=== PATIENT | female | born 1960 | race Caucasian/White ===

== ENCOUNTER 2016-12-12 02:15 | Emergency (ER) | payer MEDICAID ==
[~2016-12-12] VITALS: Ht 152.4 cm; Wt 100.0 kg
[2016-12-12] MEDS ORDERED: HYDROcodone/APAP 5/325 TABLET ONE (02:48)
[2016-12-12] MEDS ORDERED: HYDROcodone/APAP 5/325 TABLET PO ONE (03:00)
[2016-12-12 03:52] VITALS: BP 148/75
== END 2016-12-12 03:54 | disposition home or self-care (01) ==
LOC: ED 03:34
DX: S80.02XA Contusion of left knee, initial encounter (principal); G89.11 Acute pain due to trauma; G89.29 Other chronic pain; W01.0XXA Fall on same level from slipping, tripping and stumbling without subsequent striking against object, initial encounter; Y93.89 Activity, other specified; Y92.89 Other specified places as the place of occurrence of the external cause; Y99.8 Other external cause status
CPT/HCPCS: 99284

== ENCOUNTER 2017-11-18 09:37 | Emergency (ER) | payer MEDICAID ==
[~2017-11-18] VITALS: Ht 152.4 cm; Wt 108.2 kg
[2017-11-18] MEDS ORDERED: IBUPROFEN 200 MG TABLET ONE (10:25)
[2017-11-18] MEDS ORDERED: IBUPROFEN 200 MG TABLET PO ONE (10:30)
[2017-11-18 11:18] VITALS: BP 152/78
== END 2017-11-18 11:21 | disposition home or self-care (01) ==
LOC: ED 10:27
DX: K04.7 Periapical abscess without sinus (principal); G89.29 Other chronic pain; Z88.0 Allergy status to penicillin; Z88.1 Allergy status to other antibiotic agents; Z88.5 Allergy status to narcotic agent
CPT/HCPCS: 70100; 99284

== ENCOUNTER 2018-12-07 14:30 | Inpatient (IN) | payer MEDICAID ==
[~2018-12-07] VITALS: Ht 152.4 cm; Wt 106.2 kg
[2018-12-07 15:23] LABS: BASOPHILS # (AUTO) 0.12 x10^3/uL (0-0.1); BASOPHILS % (AUTO) 1 % (0-1); EOSINOPHILS # (AUTO) 0.34 x10^3/uL (0-0.4); EOSINOPHILS % (AUTO) 4 % (1-7); LYMPHOCYTES # (AUTO) 2.57 x10^3/uL (1-3.4); LYMPHOCYTES % (AUTO) 27 % (22-44); MD NO; MEAN CORPUSCULAR HEMOGLOBIN 30.5 pg (27.0-34.8); MEAN CORPUSCULAR HGB CONC 32.9 g/dL (32.4-35.8); MEAN CORPUSCULAR VOLUME 92.6 fL (80-100); MEAN PLATELET VOLUME 8.8 fL (7.4-10.4); MONOCYTES # (AUTO) 0.59 x10^3/uL (0.2-0.8); MONOCYTES % (AUTO) 6 % (2-9); NEUTROPHILS # (AUTO) 5.76 x10^3/uL (1.8-6.8); NEUTROPHILS % (AUTO) 61 % (42-75); PLATELET COUNT 316 x10^3/uL (130-400); RED BLOOD COUNT 5.02 x10^6/uL (3.82-5.3); RED CELL DISTRIBUTION WIDTH 13.9 % (9.6-15.2)
[2018-12-07 15:28] LABS: ALANINE AMINOTRANSFERASE 31 U/L (12-78); ALBUMIN 3.1 g/dL (3.4-5.0); ANION GAP 8 mmol/L (5-15); CALCIUM 8.4 mg/dL (8.5-10.1); CHLORIDE 109 mmol/L (98-107); CREATININE 1.21 mg/dL (0.55-1.02)
--- NOTE | 2018-12-07 15:28 | NUR ---
PT RESTING ON STERLING HASTINGS NOTED AT THIS TIME, PT DENIES NEEDS
[2018-12-07 15:32] LABS: ALKALINE PHOSPHATASE 130 U/L (45-117); BILIRUBIN,TOTAL 0.5 mg/dL (0.2-1.0); TOTAL PROTEIN 8.2 g/dL (6.4-8.2); TROPONIN I 0.031 ng/mL (0.000-0.045)
[2018-12-07] MEDS ORDERED: FUROSEMIDE 40 MG/4 ML ONE (15:57)
[2018-12-07] MEDS ORDERED: FUROSEMIDE 20 MG/2 ML IV ONE (16:00)
[2018-12-07] MEDS ORDERED: ASPIRIN 325 MG TABLET ONE (16:17)
[2018-12-07] MEDS ORDERED: NITROGLYCERIN OINT 2%, 1GM TP ONE ×2 (16:18→16:30)
--- NOTE | 2018-12-07 16:22 | NUR ---
PT MEDICATED PER MAR, ADMITTING MD AT BEDSIDE. AWAITING BED PLACEMENT
[2018-12-07] MEDS ORDERED: ENOXAPARIN 40 MG/0.4 ML SQ SCH (16:30)
[2018-12-07] MEDS ORDERED: ASPIRIN 81 MG TABLET CHEW PO ONE (16:30)
[2018-12-07] MEDS ORDERED: LABETALOL 5MG/ML, 20ML IVPush PRN (16:30)
[2018-12-07] MEDS ORDERED: PROMETHAZINE 25 MG/ML, 1ML IM PRN (16:30)
[2018-12-07] MEDS: NICOTINE 7 MG/24 HR PATCH.TD24 TD SCH (16:30)
[2018-12-07] MEDS ORDERED: GUAIFENESIN 200 MG TABLET PO SCH (16:30)
[2018-12-07] MEDS ORDERED: NITROGLYCERIN 0.4 MG BOTTLE (25 TABS) SL PRN (16:30)
[2018-12-07] MEDS ORDERED: ONDANSETRON 2MG/ML, 2ML IVPush PRN (16:30)
[2018-12-07] MEDS ORDERED: HEPARIN 5,000 UNITS/ML, 1ML SQ SCH (17:00)
[2018-12-07] MEDS ORDERED: FUROSEMIDE 40 MG/4 ML IV SCH (17:00)
[2018-12-07 17:11] LABS: TROPONIN I 0.026 ng/mL (0.000-0.045)
[2018-12-07 17:28] VITALS: BP 139/93
[2018-12-07 18:03] LABS: RAPID INFLUENZA A Negative (Negative); RAPID INFLUENZA B Negative (Negative)
[2018-12-07] MEDS: GUAIFENESIN 200 MG TABLET PO SCH ×2 (18:03→20:12)
[2018-12-07] MEDS: CARVEDILOL 3.125 MG TABLET PO SCH (18:03)
[2018-12-07] MEDS ORDERED: no home meds (18:23)
[2018-12-07 18:48] VITALS: BP 116/84
[2018-12-07] MEDS: HEPARIN 5,000 UNITS/ML, 1ML SQ SCH (20:00)
[2018-12-07] MEDS: ATORVASTATIN 80 MG TABLET PO SCH (20:12)
[2018-12-07 22:41] LABS: TROPONIN I 0.024 ng/mL (0.000-0.045)
[2018-12-08] MEDS: ACETAMINOPHEN 325 MG TABLET PO PRN ×2 (00:04→05:34)
[2018-12-08 00:30] VITALS: BP 149/95
[2018-12-08] MEDS ORDERED: ALBUTEROL SULFATE 2.5 MG/3 ML NPPB PRN (03:30)
[2018-12-08] MEDS: HEPARIN 5,000 UNITS/ML, 1ML SQ SCH ×3 (04:00→20:00)
[2018-12-08 05:18] LABS: BASOPHILS # (AUTO) 0.05 x10^3/uL (0-0.1); BASOPHILS % (AUTO) 1 % (0-1); EOSINOPHILS # (AUTO) 0.44 x10^3/uL (0-0.4); EOSINOPHILS % (AUTO) 5 % (1-7); LYMPHOCYTES % (AUTO) 21 % (22-44); MD NO; MEAN CORPUSCULAR HEMOGLOBIN 30.6 pg (27.0-34.8); MEAN CORPUSCULAR HGB CONC 32.5 g/dL (32.4-35.8); MEAN CORPUSCULAR VOLUME 94.3 fL (80-100); MEAN PLATELET VOLUME 8.7 fL (7.4-10.4); MONOCYTES # (AUTO) 0.56 x10^3/uL (0.2-0.8); MONOCYTES % (AUTO) 6 % (2-9); NEUTROPHILS # (AUTO) 5.95 x10^3/uL (1.8-6.8); NEUTROPHILS % (AUTO) 67 % (42-75); PLATELET COUNT 285 x10^3/uL (130-400); RED BLOOD COUNT 4.98 x10^6/uL (3.82-5.3); RED CELL DISTRIBUTION WIDTH 14.4 % (9.6-15.2)
[2018-12-08 05:32] LABS: ALANINE AMINOTRANSFERASE 26 U/L (12-78); ALBUMIN 2.9 g/dL (3.4-5.0); ANION GAP 7 mmol/L (5-15); CALCIUM 8.2 mg/dL (8.5-10.1); CHLORIDE 105 mmol/L (98-107); CHOLESTEROL, TOTAL 140 mg/dL (140-239); CREATININE 1.04 mg/dL (0.55-1.02); TRIGLYCERIDES 69 mg/dL (50-200); VLDL CHOLESTEROL 14 mg/dL (0-25)
[2018-12-08] MEDS: CARVEDILOL 3.125 MG TABLET PO SCH ×2 (05:34→16:52)
[2018-12-08] MEDS: GUAIFENESIN 200 MG TABLET PO SCH ×4 (05:34→20:29)
[2018-12-08 05:36] LABS: ALKALINE PHOSPHATASE 114 U/L (45-117); BILIRUBIN,TOTAL 0.7 mg/dL (0.2-1.0); CHOL/HDL RATIO 2.3; HDL CHOL % 44 % (28-40); HDL CHOLESTEROL (DIRECT) 62 mg/dL (40-60); LDL CHOLESTEROL,CALCULATED 64 mg/dL (54-169); TOTAL PROTEIN 7.8 g/dL (6.4-8.2); TROPONIN I < 0.015 ng/mL (0.000-0.045)
[2018-12-08 07:51] VITALS: BP 135/91
[2018-12-08] MEDS: ASPIRIN 81 MG TABLET CHEW PO SCH (08:52)
[2018-12-08] MEDS: FUROSEMIDE 40 MG/4 ML IV SCH ×4 (08:52→20:29)
[2018-12-08 15:20] VITALS: BP 114/78
[2018-12-08] MEDS: NICOTINE 7 MG/24 HR PATCH.TD24 TD SCH (16:43)
[2018-12-08 19:34] VITALS: BP 145/93
[2018-12-08] MEDS: ATORVASTATIN 80 MG TABLET PO SCH (20:27)
[2018-12-09 00:55] VITALS: BP 135/86
[2018-12-09] MEDS: HEPARIN 5,000 UNITS/ML, 1ML SQ SCH ×3 (04:00→20:00)
[2018-12-09 05:39] LABS: ANION GAP 7 mmol/L (5-15); CALCIUM 8.5 mg/dL (8.5-10.1); CHLORIDE 103 mmol/L (98-107)
[2018-12-09 05:42] LABS: ALANINE AMINOTRANSFERASE 26 U/L (12-78); ALKALINE PHOSPHATASE 126 U/L (45-117); BILIRUBIN,TOTAL 0.7 mg/dL (0.2-1.0); CREATININE 1.29 mg/dL (0.55-1.02); TOTAL PROTEIN 8.4 g/dL (6.4-8.2)
[2018-12-09 06:15] VITALS: BP 138/93
[2018-12-09] MEDS: CARVEDILOL 3.125 MG TABLET PO SCH (06:16)
[2018-12-09] MEDS: GUAIFENESIN 200 MG TABLET PO SCH ×4 (06:16→20:59)
[2018-12-09 07:50] VITALS: BP 125/71
[2018-12-09] MEDS: FUROSEMIDE 40 MG/4 ML IV SCH ×2 (08:31→21:00)
[2018-12-09] MEDS: ASPIRIN 81 MG TABLET CHEW PO SCH (08:31)
[2018-12-09 13:36] VITALS: BP 134/92
[2018-12-09] MEDS: NICOTINE 7 MG/24 HR PATCH.TD24 TD SCH (15:17)
[2018-12-09] MEDS: CARVEDILOL 6.25 MG TABLET PO SCH (17:40)
[2018-12-09 19:26] VITALS: BP 143/90
[2018-12-09] MEDS: ATORVASTATIN 80 MG TABLET PO SCH (21:00)
[2018-12-10 00:40] VITALS: BP 132/87
[2018-12-10] MEDS: HEPARIN 5,000 UNITS/ML, 1ML SQ SCH ×3 (04:00→19:49)
[2018-12-10 04:14] VITALS: BP 143/95
[2018-12-10] MEDS: CARVEDILOL 6.25 MG TABLET PO SCH (04:15)
[2018-12-10] MEDS: GUAIFENESIN 200 MG TABLET PO SCH ×4 (04:16→19:49)
[2018-12-10 04:44] LABS: ALANINE AMINOTRANSFERASE 23 U/L (12-78); ANION GAP 6 mmol/L (5-15); CALCIUM 8.6 mg/dL (8.5-10.1); CHLORIDE 103 mmol/L (98-107); CREATININE 1.23 mg/dL (0.55-1.02)
[2018-12-10 04:46] LABS: ALKALINE PHOSPHATASE 122 U/L (45-117); BILIRUBIN,TOTAL 0.6 mg/dL (0.2-1.0); TOTAL PROTEIN 8.6 g/dL (6.4-8.2)
[2018-12-10 07:07] VITALS: BP 124/84
[2018-12-10] MEDS: FUROSEMIDE 40 MG/4 ML IV SCH ×2 (08:17→19:49)
[2018-12-10] MEDS: ASPIRIN 81 MG TABLET CHEW PO SCH (08:17)
[2018-12-10 14:34] VITALS: BP 130/82
[2018-12-10] MEDS: NICOTINE 7 MG/24 HR PATCH.TD24 TD SCH (16:09)
[2018-12-10] MEDS ORDERED: POTASSIUM CHLORIDE 20 MEQ TAB.ER.PRT PO ONE (16:30)
[2018-12-10] MEDS: CARVEDILOL 12.5 MG TABLET PO SCH (17:18)
[2018-12-10] MEDS: ATORVASTATIN 80 MG TABLET PO SCH (19:49)
[2018-12-10 19:58] VITALS: BP 120/77
[2018-12-11 01:19] VITALS: BP 126/83
[2018-12-11] MEDS: HEPARIN 5,000 UNITS/ML, 1ML SQ SCH ×4 (04:00→22:55)
[2018-12-11 04:26] VITALS: BP 162/105
[2018-12-11] MEDS: CARVEDILOL 12.5 MG TABLET PO SCH ×2 (04:27→17:45)
[2018-12-11] MEDS: GUAIFENESIN 200 MG TABLET PO SCH ×4 (04:27→21:00)
[2018-12-11 04:52] LABS: ALANINE AMINOTRANSFERASE 22 U/L (12-78); ALBUMIN 3.1 g/dL (3.4-5.0); ANION GAP 7 mmol/L (5-15); CALCIUM 8.8 mg/dL (8.5-10.1); CHLORIDE 104 mmol/L (98-107); CREATININE 1.33 mg/dL (0.55-1.02)
[2018-12-11 04:54] LABS: ALKALINE PHOSPHATASE 120 U/L (45-117); BILIRUBIN,TOTAL 0.5 mg/dL (0.2-1.0); TOTAL PROTEIN 8.6 g/dL (6.4-8.2)
[2018-12-11 04:58] LABS: HEMOGLOBIN A1C 5.5 % (4.2-6.3)
[2018-12-11 08:04] VITALS: BP 105/70
[2018-12-11] MEDS: FUROSEMIDE 40 MG/4 ML IV SCH (09:53)
[2018-12-11] MEDS: ASPIRIN 81 MG TABLET CHEW PO SCH (09:59)
[2018-12-11 14:08] VITALS: BP 132/83
[2018-12-11] MEDS: NICOTINE 7 MG/24 HR PATCH.TD24 TD SCH (16:06)
[2018-12-11 17:44] VITALS: BP 135/93
[2018-12-11 20:00] VITALS: BP 125/85
[2018-12-11] MEDS: ATORVASTATIN 80 MG TABLET PO SCH (21:28)
[2018-12-12 02:55] VITALS: BP 135/85
[2018-12-12] MEDS: CARVEDILOL 12.5 MG TABLET PO SCH ×2 (05:26→17:52)
[2018-12-12] MEDS: GUAIFENESIN 200 MG TABLET PO SCH ×4 (05:26→20:43)
[2018-12-12 05:45] LABS: INTERNATIONAL NORMALIZED RATIO 1.06 (0.93-1.1); PROTHROMBIN TIME 11.1 Seconds (9.6-11.5)
[2018-12-12 05:48] LABS: ANION GAP 7 mmol/L (5-15); CALCIUM 8.8 mg/dL (8.5-10.1); CHLORIDE 104 mmol/L (98-107)
[2018-12-12 05:51] LABS: BASOPHILS # (AUTO) 0.06 x10^3/uL (0-0.1); BASOPHILS % (AUTO) 1 % (0-1); EOSINOPHILS # (AUTO) 0.47 x10^3/uL (0-0.4); EOSINOPHILS % (AUTO) 4 % (1-7); LYMPHOCYTES # (AUTO) 3.37 x10^3/uL (1-3.4); LYMPHOCYTES % (AUTO) 30 % (22-44); MD NO; MEAN CORPUSCULAR HEMOGLOBIN 30.3 pg (27.0-34.8); MEAN CORPUSCULAR HGB CONC 32.1 g/dL (32.4-35.8); MEAN CORPUSCULAR VOLUME 94.2 fL (80-100); MEAN PLATELET VOLUME 8.9 fL (7.4-10.4); MONOCYTES # (AUTO) 1.07 x10^3/uL (0.2-0.8); MONOCYTES % (AUTO) 9 % (2-9); NEUTROPHILS # (AUTO) 6.32 x10^3/uL (1.8-6.8); NEUTROPHILS % (AUTO) 56 % (42-75); PLATELET COUNT 323 x10^3/uL (130-400)
[2018-12-12 07:44] VITALS: BP 104/71
[2018-12-12] MEDS: ASPIRIN 81 MG TABLET CHEW PO SCH (09:54)
[2018-12-12] MEDS ORDERED: VERAPAMIL 2.5 MG/ML, 2ML ONE (10:18)
[2018-12-12] MEDS ORDERED: MIDAZOLAM 1 MG/ML, 5ML ONE (10:18)
[2018-12-12] MEDS ORDERED: FENTANYL PF 100 MCG/2ML ONE (10:18)
[2018-12-12] MEDS ORDERED: NITROGLYCERIN 5 MG/ML, 10ML ONE (10:18)
[2018-12-12] MEDS ORDERED: LIDOCAINE-MPF 1%, 5ML ONE (10:19)
[2018-12-12] MEDS ORDERED: HEPARIN 1,000 UNITS/ML, 10ML ONE (10:19)
[2018-12-12] MEDS: HEPARIN 5,000 UNITS/ML, 1ML SQ SCH ×2 (12:00→20:00)
[2018-12-12 12:18] VITALS: BP 114/79
[2018-12-12] MEDS: NICOTINE 7 MG/24 HR PATCH.TD24 TD SCH (16:30)
[2018-12-12 17:48] VITALS: BP 116/82
[2018-12-12 19:09] VITALS: BP 126/68
[2018-12-12] MEDS: ATORVASTATIN 80 MG TABLET PO SCH (20:43)
[2018-12-13 00:02] VITALS: BP 121/81
[2018-12-13] MEDS: HEPARIN 5,000 UNITS/ML, 1ML SQ SCH (04:00)
[2018-12-13 04:42] LABS: ANION GAP 8 mmol/L (5-15); CALCIUM 8.8 mg/dL (8.5-10.1); CHLORIDE 105 mmol/L (98-107)
[2018-12-13] MEDS: GUAIFENESIN 200 MG TABLET PO SCH (06:00)
[2018-12-13] MEDS: CARVEDILOL 12.5 MG TABLET PO SCH (06:24)
[2018-12-13 07:00] VITALS: BP 105/72
[2018-12-13] MEDS: ASPIRIN 81 MG TABLET CHEW PO SCH (08:13)
[2018-12-13] MEDS ORDERED: ATOR-2 PO (09:58)
[2018-12-13] MEDS ORDERED: CARV12.52 PO (09:58)
== END 2018-12-13 12:04 | disposition home or self-care (01) | DRG 287 ==
LOC: ED 15:49 → EDIP 15:50 → ED 16:51 → 5SO 17:24 → DCLOUNGE 12-13 11:57
PROVIDERS: ADMIT Internal Medicine; ATTEND Internal Medicine
PROC: 4A023N7 Measurement of Cardiac Sampling and Pressure, Left Heart, Percutaneous Approach (ICD-10-PCS; principal; 2018-12-12)
PROC: B211YZZ Fluoroscopy of Multiple Coronary Arteries using Other Contrast (ICD-10-PCS; 2018-12-12)
PROC: B215YZZ Fluoroscopy of Left Heart using Other Contrast (ICD-10-PCS; 2018-12-12)
DX: I11.0 Hypertensive heart disease with heart failure (principal); I47.2 Ventricular tachycardia; N17.9 Acute kidney failure, unspecified; Z68.42 Body mass index [BMI] 45.0-49.9, adult; E66.01 Morbid (severe) obesity due to excess calories; I50.41 Acute combined systolic (congestive) and diastolic (congestive) heart failure; F17.210 Nicotine dependence, cigarettes, uncomplicated; I25.10 Atherosclerotic heart disease of native coronary artery without angina pectoris; I27.20 Pulmonary hypertension, unspecified; F15.10 Other stimulant abuse, uncomplicated; I37.1 Nonrheumatic pulmonary valve insufficiency; Z66 Do not resuscitate; Z82.49 Family history of ischemic heart disease and other diseases of the circulatory system; Z71.6 Tobacco abuse counseling; I25.2 Old myocardial infarction
CPT/HCPCS: 0399T; 36415; 71045; 80048; 80053; 80061; 83036; 83735; 83880; 84100; 84443; 84484; 85025; 85610; 85730; 87400; 93005; 93306; 93458; 99156; 99285; C1769; C1894; G0378; J1644; J1940; J2250; J3010; Q9967

== ENCOUNTER 2019-03-21 06:12 | Inpatient (IN) | payer MEDICAID ==
[~2019-03-21] VITALS: Ht 152.4 cm; Wt 103.4 kg
[~2019-03-21 06:12] MED LIST: ATOR-2 PO; CARV12.52 PO; no home meds
--- NOTE | 2019-03-21 06:41 | NUR ---
Patient presents to ER c/o difficulty breathing for two months which became worse today. She also c/o substernal chest pressure which is worse with deep breathing. Patient is speaking in full, quick sentences. Hx of CHF. Respirations even. Patient refusing to change into gown; refusing to keep nasal cannula in nose.
--- NOTE | 2019-03-21 06:55 | NUR ---
Report given to KWASI Kurtz.
--- NOTE | 2019-03-21 06:59 | NUR ---
RECEIVED REPORT ASSUMED CARE
[2019-03-21] MEDS ORDERED: ALBUTEROL SULFATE 2.5 MG/3 ML NPPB PRN (07:00)
[2019-03-21] MEDS ORDERED: NITROGLYCERIN SINGLE TAB 0.4 MG SL PRN (07:00)
[2019-03-21] MEDS ORDERED: ASPIRIN 81 MG TABLET CHEW PO ONE (07:00)
[2019-03-21] MEDS ORDERED: METOPROLOL 1 MG/ML, 5ML IVPush PRN (07:00)
[2019-03-21] MEDS ORDERED: ALBUTEROL SULFATE 2.5 MG/3 ML ONE (07:01)
[2019-03-21 07:10] LABS: BASOPHILS # (AUTO) 0.05 x10^3/uL (0-0.1); BASOPHILS % (AUTO) 1 % (0-1); EOSINOPHILS # (AUTO) 0.22 x10^3/uL (0-0.4); EOSINOPHILS % (AUTO) 2 % (1-7); LYMPHOCYTES # (AUTO) 1.74 x10^3/uL (1-3.4); LYMPHOCYTES % (AUTO) 17 % (22-44); MD NO; MEAN CORPUSCULAR HEMOGLOBIN 30.2 pg (27.0-34.8); MEAN CORPUSCULAR HGB CONC 32.6 g/dL (32.4-35.8); MEAN CORPUSCULAR VOLUME 92.8 fL (80-100); MEAN PLATELET VOLUME 9.5 fL (7.4-10.4); MONOCYTES # (AUTO) 0.69 x10^3/uL (0.2-0.8); MONOCYTES % (AUTO) 7 % (2-9); NEUTROPHILS # (AUTO) 7.49 x10^3/uL (1.8-6.8); NEUTROPHILS % (AUTO) 74 % (42-75); PLATELET COUNT 288 x10^3/uL (130-400); RED BLOOD COUNT 5.15 x10^6/uL (3.82-5.3)
--- NOTE | 2019-03-21 07:10 | NUR ---
RT AT BEDSIDE
[2019-03-21 07:15] LABS: ALANINE AMINOTRANSFERASE 21 U/L (12-78); ALBUMIN 2.9 g/dL (3.4-5.0); ANION GAP 8 mmol/L (5-15); CALCIUM 8.5 mg/dL (8.5-10.1); CHLORIDE 112 mmol/L (98-107)
[2019-03-21 07:20] LABS: ALKALINE PHOSPHATASE 113 U/L (45-117); BILIRUBIN,TOTAL 0.8 mg/dL (0.2-1.0); TOTAL PROTEIN 7.9 g/dL (6.4-8.2); TROPONIN I 0.032 ng/mL (0.000-0.045)
[2019-03-21] MEDS ORDERED: ASPIRIN 81 MG TABLET CHEW ONE (08:01)
--- NOTE | 2019-03-21 08:06 | NUR ---
WHEN PT AMBULATED TO BATHROOM PT DISPLAYED SOB, INCREASED WOB WITH EXERTION. IV ESTABLISHED ON RETURN TO ROOM AND MEDICATED PER ORDERS.
--- NOTE | 2019-03-21 08:35 | NUR ---
AFTER NITRO GIVEN PT STATES SHE CONTINUES TO HAVE PAIN CENTER OF CHEST. VS RECHECKED AND TO BE ADDITIONALLY MEDICATED NOTED ON MAR
[2019-03-21] MEDS ORDERED: METOPROLOL 1 MG/ML, 5ML ONE (08:38)
[2019-03-21] MEDS ORDERED: ASPI325T17 PO (08:43)
[2019-03-21] MEDS ORDERED: FUROSEMIDE 40 MG TABLET PO STA (08:51)
[2019-03-21] MEDS ORDERED: FUROSEMIDE 40 MG TABLET ONE (09:26)
--- NOTE | 2019-03-21 10:18 | NUR ---
REPORT TO HENRY VILLALPANDO. PT TO BE TRANSPORTED TO FLOOR
--- NOTE | 2019-03-21 10:28 | NUR ---
HOSPITALIST AT BEDSIDE AND THEN PT OFF FLOOR TO TELE WITH TECH
[2019-03-21] MEDS ORDERED: ONDANSETRON ODT 4 MG PO PRN ×2 (10:30→11:30)
[2019-03-21] MEDS ORDERED: DOCUSATE 100 MG CAPSULE PO PRN ×2 (10:30→11:30)
[2019-03-21] MEDS ORDERED: morphine SULFATE 10 MG/ML, 1ML IVPush PRN (10:30)
[2019-03-21] MEDS ORDERED: BISACODYL 10 MG SUPP PR PRN ×2 (10:30→11:30)
[2019-03-21] MEDS ORDERED: POLYETHYLENE GLYCOL 17 GM PACKET PO PRN ×2 (10:30→11:30)
[2019-03-21] MEDS ORDERED: NICOTINE 7 MG/24 HR PATCH.TD24 TD SCH (10:30)
[2019-03-21] MEDS ORDERED: hydrALAzine 20 MG/ML, 1ML IVPush PRN ×2 (10:30→15:30)
[2019-03-21 10:48] VITALS: BP 149/103
[2019-03-21] MEDS ORDERED: FUROSEMIDE 20 MG/2 ML IV SCH (11:00)
[2019-03-21] MEDS ORDERED: LISINOPRIL 5 MG TABLET PO SCH ×2 (11:00→11:30)
[2019-03-21 11:25] VITALS: BP 149/103
[2019-03-21] MEDS: NICOTINE 7 MG/24 HR PATCH.TD24 TD SCH (11:30)
[2019-03-21 11:32] LABS: FREE T4 (FREE THYROXINE) 1.5 ng/dL (0.76-1.46)
[2019-03-21] MEDS ORDERED: ENOXAPARIN 40 MG/0.4 ML SQ SCH (12:00)
[2019-03-21] MEDS ORDERED: ENOXAPARIN 40 MG/0.4 ML ONE (12:15)
[2019-03-21] MEDS: ENOXAPARIN 40 MG/0.4 ML SQ SCH (12:19)
[2019-03-21 14:40] VITALS: BP 152/108
[2019-03-21] MEDS: CARVEDILOL 3.125 MG TABLET PO SCH (16:56)
[2019-03-21] MEDS: FUROSEMIDE 20 MG/2 ML IV SCH (16:57)
[2019-03-21] MEDS ORDERED: CARVEDILOL 3.125 MG TABLET PO SCH (18:00)
[2019-03-21 18:56] VITALS: BP 147/92
[2019-03-21] MEDS ORDERED: ACETAMINOPHEN 325 MG TABLET ONE (21:19)
[2019-03-21] MEDS: ACETAMINOPHEN 325 MG TABLET PO PRN (21:22)
[2019-03-22 00:55] VITALS: BP 147/82
[2019-03-22] MEDS ORDERED: ACETAMINOPHEN 325 MG TABLET ONE (02:26)
[2019-03-22] MEDS: ACETAMINOPHEN 325 MG TABLET PO PRN (02:28)
[2019-03-22 06:15] VITALS: BP_SYST 148; BP_DIAS 100; BP_DIAS 103
[2019-03-22] MEDS: CARVEDILOL 3.125 MG TABLET PO SCH (06:18)
[2019-03-22 06:26] VITALS: BP 153/91
[2019-03-22 07:51] LABS: ANION GAP 7 mmol/L (5-15); CALCIUM 8.2 mg/dL (8.5-10.1); CHLORIDE 109 mmol/L (98-107); CREATININE 1.11 mg/dL (0.55-1.02)
[2019-03-22] MEDS ORDERED: KETOROLAC 30 MG/1 ML IVPush ONE (08:00)
[2019-03-22] MEDS ORDERED: KETOROLAC 30 MG/1 ML IVPush PRN (08:00)
[2019-03-22 08:40] LABS: BASOPHILS # (AUTO) 0.04 x10^3/uL (0-0.1); BASOPHILS % (AUTO) 0 % (0-1); EOSINOPHILS # (AUTO) 0.25 x10^3/uL (0-0.4); EOSINOPHILS % (AUTO) 3 % (1-7); LYMPHOCYTES # (AUTO) 2.19 x10^3/uL (1-3.4); LYMPHOCYTES % (AUTO) 23 % (22-44); MD NO; MEAN CORPUSCULAR HEMOGLOBIN 30.2 pg (27.0-34.8); MEAN CORPUSCULAR HGB CONC 32.5 g/dL (32.4-35.8); MEAN CORPUSCULAR VOLUME 93.1 fL (80-100); MEAN PLATELET VOLUME 9.6 fL (7.4-10.4); MONOCYTES # (AUTO) 0.57 x10^3/uL (0.2-0.8); MONOCYTES % (AUTO) 6 % (2-9); NEUTROPHILS # (AUTO) 6.41 x10^3/uL (1.8-6.8); NEUTROPHILS % (AUTO) 68 % (42-75); PLATELET COUNT 269 x10^3/uL (130-400); RED BLOOD COUNT 4.93 x10^6/uL (3.82-5.3); RED CELL DISTRIBUTION WIDTH 15.1 % (9.6-15.2)
[2019-03-22] MEDS: GUAIFENESIN ER 600 MG TABLET PO SCH ×2 (09:26→20:05)
[2019-03-22] MEDS: LORATADINE 10 MG TABLET PO SCH (09:27)
[2019-03-22] MEDS: FUROSEMIDE 20 MG/2 ML IV SCH ×2 (09:27→17:14)
[2019-03-22] MEDS: LISINOPRIL 10 MG TABLET PO SCH ×2 (09:27→20:05)
[2019-03-22] MEDS: SPIRONOLACTONE 25 MG TABLET PO SCH (09:27)
[2019-03-22] MEDS: NICOTINE 7 MG/24 HR PATCH.TD24 TD SCH (11:30)
[2019-03-22] MEDS: ENOXAPARIN 40 MG/0.4 ML SQ SCH (11:43)
[2019-03-22] MEDS ORDERED: LABETALOL 5MG/ML, 20ML IVPush PRN (12:00)
[2019-03-22] MEDS: FLUTICASONE NASAL SPRAY 16GM NAS SCH (12:42)
[2019-03-22 13:50] VITALS: BP 142/91
[2019-03-22] MEDS: CARVEDILOL 6.25 MG TABLET PO SCH (17:13)
[2019-03-22 18:38] VITALS: BP 138/87
[2019-03-23 00:16] VITALS: BP 132/80
[2019-03-23 06:00] VITALS: BP 139/94
[2019-03-23] MEDS: CARVEDILOL 6.25 MG TABLET PO SCH ×2 (06:11→17:44)
[2019-03-23 07:46] LABS: ANION GAP 9 mmol/L (5-15); CHLORIDE 107 mmol/L (98-107); CREATININE 1.19 mg/dL (0.55-1.02)
[2019-03-23 08:13] VITALS: BP 130/86
[2019-03-23] MEDS: FLUTICASONE NASAL SPRAY 16GM NAS SCH (10:33)
[2019-03-23] MEDS: LORATADINE 10 MG TABLET PO SCH (10:33)
[2019-03-23] MEDS: GUAIFENESIN ER 600 MG TABLET PO SCH ×2 (10:33→20:01)
[2019-03-23] MEDS: SPIRONOLACTONE 25 MG TABLET PO SCH (10:34)
[2019-03-23] MEDS: FUROSEMIDE 40 MG TABLET PO SCH (10:34)
[2019-03-23] MEDS: LISINOPRIL 10 MG TABLET PO SCH ×2 (10:34→20:01)
[2019-03-23] MEDS: NICOTINE 7 MG/24 HR PATCH.TD24 TD SCH (10:34)
[2019-03-23] MEDS: ENOXAPARIN 40 MG/0.4 ML SQ SCH (12:30)
[2019-03-23 13:41] VITALS: BP 126/82
[2019-03-23 18:35] VITALS: BP 157/98
[2019-03-24 01:22] VITALS: BP 125/85
[2019-03-24] MEDS: CARVEDILOL 6.25 MG TABLET PO SCH (06:17)
[2019-03-24] MEDS ORDERED: SPIR25TA PO (07:30)
[2019-03-24] MEDS ORDERED: CARV6.2512 PO ×3 (07:30→11:20)
[2019-03-24] MEDS ORDERED: FURO40TA6 PO (07:30)
[2019-03-24] MEDS ORDERED: LISI-167 PO (07:30)
[2019-03-24] MEDS: LISINOPRIL 10 MG TABLET PO SCH (08:33)
[2019-03-24] MEDS: FLUTICASONE NASAL SPRAY 16GM NAS SCH (08:33)
[2019-03-24] MEDS: LORATADINE 10 MG TABLET PO SCH (08:33)
[2019-03-24] MEDS: GUAIFENESIN ER 600 MG TABLET PO SCH (08:33)
[2019-03-24] MEDS: FUROSEMIDE 40 MG TABLET PO SCH (08:34)
[2019-03-24] MEDS: SPIRONOLACTONE 25 MG TABLET PO SCH (08:34)
[2019-03-24 10:02] VITALS: BP 115/76
[2019-03-24] MEDS: NICOTINE 7 MG/24 HR PATCH.TD24 TD SCH (10:49)
[2019-03-24 11:03] LABS: ANION GAP 5 mmol/L (5-15); CALCIUM 8.5 mg/dL (8.5-10.1); CHLORIDE 107 mmol/L (98-107); CREATININE 1.15 mg/dL (0.55-1.02)
[2019-03-24] MEDS ORDERED: MAGNESIUM SULFATE PMX 2GM/50ML 50 ML IV ONE (11:30)
[2019-03-24] MEDS: ENOXAPARIN 40 MG/0.4 ML SQ SCH (11:45)
[2019-03-24 12:53] LABS: MICROSCOPIC NOT IND
[2019-03-24 15:18] VITALS: BP 132/89
[2019-03-24] MEDS ORDERED: CARVEDILOL 12.5 MG TABLET PO SCH (18:00)
== END 2019-03-24 17:21 | disposition home or self-care (01) | DRG 291 ==
LOC: ED 09:39 → 4WST 10:01 → ED 11:18
PROVIDERS: ADMIT Internal Medicine; ATTEND Hospitalist
DX: I50.43 Acute on chronic combined systolic (congestive) and diastolic (congestive) heart failure (principal); J96.01 Acute respiratory failure with hypoxia; I47.1 Supraventricular tachycardia; I47.2 Ventricular tachycardia; Z68.41 Body mass index [BMI] 40.0-44.9, adult; E66.01 Morbid (severe) obesity due to excess calories; Z88.0 Allergy status to penicillin; Z88.8 Allergy status to other drugs, medicaments and biological substances; F17.210 Nicotine dependence, cigarettes, uncomplicated; I27.20 Pulmonary hypertension, unspecified; J30.9 Allergic rhinitis, unspecified; Z91.14 Patient's other noncompliance with medication regimen
CPT/HCPCS: 36415; 71045; 80048; 80053; 81003; 83036; 83735; 83880; 84100; 84439; 84443; 84484; 85025; 93005; 94640; 96374; 99285; G0378; J1885; J0360; J1940; J3475

== ENCOUNTER 2019-04-11 20:28 | Emergency (ER) | payer MEDICAID ==
[~2019-04-11] VITALS: Ht 152.4 cm; Wt 95.6 kg
[~2019-04-11 20:28] MED LIST changes: +ASPI325T17 PO; +CARV6.2512 PO; +FURO40TA6 PO; +LISI-167 PO; +SPIR25TA PO
[2019-04-11] MEDS ORDERED: SODIUM CHLORIDE FLUSH 10ML SYR IVF ONE (21:00)
--- NOTE | 2019-04-11 23:45 | NUR ---
pt to room from lobby
[2019-04-11 23:48] LABS: BASOPHILS # (AUTO) 0.09 x10^3/uL (0-0.1); BASOPHILS % (AUTO) 1 % (0-1); EOSINOPHILS % (AUTO) 4 % (1-7); LYMPHOCYTES # (AUTO) 1.96 x10^3/uL (1-3.4); LYMPHOCYTES % (AUTO) 21 % (22-44); MD NO; MEAN CORPUSCULAR HEMOGLOBIN 29.9 pg (27.0-34.8); MEAN CORPUSCULAR HGB CONC 32.6 g/dL (32.4-35.8); MEAN CORPUSCULAR VOLUME 91.8 fL (80-100); MEAN PLATELET VOLUME 9.3 fL (7.4-10.4); MONOCYTES # (AUTO) 0.73 x10^3/uL (0.2-0.8); MONOCYTES % (AUTO) 8 % (2-9); NEUTROPHILS # (AUTO) 6.01 x10^3/uL (1.8-6.8); NEUTROPHILS % (AUTO) 65 % (42-75); PLATELET COUNT 255 x10^3/uL (130-400); RED BLOOD COUNT 5.48 x10^6/uL (3.82-5.3); RED CELL DISTRIBUTION WIDTH 15.3 % (9.6-15.2)
[2019-04-12] LABS: ALANINE AMINOTRANSFERASE 25 U/L (12-78); ALBUMIN 3.2 g/dL (3.4-5.0); ANION GAP 6 mmol/L (5-15); CHLORIDE 106 mmol/L (98-107); CREATININE 1.65 mg/dL (0.55-1.02)
[2019-04-12 00:02] LABS: ALKALINE PHOSPHATASE 107 U/L (45-117); BILIRUBIN,TOTAL 0.5 mg/dL (0.2-1.0); TOTAL PROTEIN 8.8 g/dL (6.4-8.2)
[2019-04-12 00:42] VITALS: BP 112/74
--- NOTE | 2019-04-12 00:42 | NUR ---
BREAK RN: PT. RESTING ON GURNEY EATING RED MEDARDO. PT. WITH NO DISTRESS NOTED. PT. AWARE OF PLAN FOR D/C. VS UPDATED. DENIES NEEDS.
== END 2019-04-12 00:50 | disposition home or self-care (01) ==
LOC: ED 04-12 00:10
DX: I80.01 Phlebitis and thrombophlebitis of superficial vessels of right lower extremity (principal); L03.115 Cellulitis of right lower limb; N28.9 Disorder of kidney and ureter, unspecified; I50.9 Heart failure, unspecified; G89.29 Other chronic pain
CPT/HCPCS: 36415; 80053; 83605; 84145; 85025; 87040; 99284

== ENCOUNTER 2019-04-17 12:04 | Emergency (ER) | payer MEDICAID ==
[~2019-04-17] VITALS: Ht 152.4 cm; Wt 96.5 kg
--- NOTE | 2019-04-17 12:17 | NUR ---
PT HERE WITH C/O "SUPERFICIAL BLOOD CLOT AND INFECTED VEIN." PT STATES SEEN A WEEK AGO HERE AND "NOW IT'S MOVING AROUND." PT DRESSED IN GOWN, ON MONITOR, PA AT BEDSIDE FOR EXAM. CALL LIGHT WITHIN REACH. SIDERAIL X [address]
[2019-04-17] MEDS ORDERED: CLIN300C8 PO (12:20)
--- NOTE | 2019-04-17 12:26 | NUR ---
MED REC COMPLETED.
[2019-04-17 12:47] LABS: BASOPHILS # (AUTO) 0.12 x10^3/uL (0-0.1); BASOPHILS % (AUTO) 1 % (0-1); EOSINOPHILS # (AUTO) 0.65 x10^3/uL (0-0.4); EOSINOPHILS % (AUTO) 6 % (1-7); LYMPHOCYTES # (AUTO) 1.96 x10^3/uL (1-3.4); LYMPHOCYTES % (AUTO) 20 % (22-44); MD NO; MEAN CORPUSCULAR HEMOGLOBIN 29.9 pg (27.0-34.8); MEAN CORPUSCULAR HGB CONC 32.8 g/dL (32.4-35.8); MEAN CORPUSCULAR VOLUME 91.3 fL (80-100); MEAN PLATELET VOLUME 8.7 fL (7.4-10.4); MONOCYTES # (AUTO) 0.67 x10^3/uL (0.2-0.8); MONOCYTES % (AUTO) 7 % (2-9); NEUTROPHILS # (AUTO) 6.66 x10^3/uL (1.8-6.8); NEUTROPHILS % (AUTO) 66 % (42-75); PLATELET COUNT 261 x10^3/uL (130-400); RED BLOOD COUNT 5.06 x10^6/uL (3.82-5.3); RED CELL DISTRIBUTION WIDTH 15.1 % (9.6-15.2)
[2019-04-17 12:52] LABS: ANION GAP 7 mmol/L (5-15); CALCIUM 8.7 mg/dL (8.5-10.1); CHLORIDE 106 mmol/L (98-107); CREATININE 2.21 mg/dL (0.55-1.02)
[2019-04-17 13:04] LABS: INTERNATIONAL NORMALIZED RATIO 0.97 (0.93-1.1); PROTHROMBIN TIME 10.3 Seconds (9.6-11.5)
[2019-04-17] MEDS ORDERED: SODIUM CHLORIDE 0.9% 1,000ML IVBOLUS ONE (14:00)
[2019-04-17] MEDS ORDERED: SODIUM CHLORIDE FLUSH 10ML SYR IVF ONE (14:00)
--- NOTE | 2019-04-17 14:01 | NUR ---
PIV ESTABLISHED BY THIS RN.
--- NOTE | 2019-04-17 14:02 | NUR ---
PT MEDICATED PER ORDERS.
--- NOTE | 2019-04-17 14:52 | NUR ---
PT AMBULATORY WITH STEADY GAIT TO RESTROOM. PLAN FOR D/C WHEN IVF FINISH.
[2019-04-17 15:04] VITALS: BP 150/89
== END 2019-04-17 15:07 | disposition home or self-care (01) ==
LOC: ED 13:55
DX: I80.01 Phlebitis and thrombophlebitis of superficial vessels of right lower extremity (principal); N17.9 Acute kidney failure, unspecified; I50.9 Heart failure, unspecified; I11.0 Hypertensive heart disease with heart failure; E66.9 Obesity, unspecified; Z90.710 Acquired absence of both cervix and uterus; Z68.41 Body mass index [BMI] 40.0-44.9, adult; Z88.0 Allergy status to penicillin; Z88.1 Allergy status to other antibiotic agents; Z88.5 Allergy status to narcotic agent
CPT/HCPCS: 36415; 80048; 82040; 85025; 85610; 85730; 93971; 99284; J7030

== ENCOUNTER 2019-08-21 18:43 | Emergency (ER) | payer MEDICAID ==
[~2019-08-21] VITALS: Ht 152.4 cm; Wt 106.1 kg
[~2019-08-21 18:43] MED LIST changes: +CLIN300C8 PO
[2019-08-21] MEDS ORDERED: SODIUM CHLORIDE FLUSH 10ML SYR IVF ONE (19:30)
--- NOTE | 2019-08-21 19:39 | NUR ---
PT CAME IN CO OF CHEST PAIN THAT CAME ON SUDDENLY WHILE SHE WAS IN THE SHOWER. PT RECENTLY HAD A INTERNAL DEFIB DEVICE PLACED. PT IS CONNECTED TO MONITORING EQUIPMENT AND IS ACCOMPANIED BY . REQUESTING RECORDS FROM [facility]
[2019-08-21 19:43] LABS: BASOPHILS # (AUTO) 0.08 x10^3/uL (0-0.1); BASOPHILS % (AUTO) 1 % (0-1); EOSINOPHILS # (AUTO) 0.59 x10^3/uL (0-0.4); EOSINOPHILS % (AUTO) 5 % (1-7); LYMPHOCYTES # (AUTO) 2.45 x10^3/uL (1-3.4); LYMPHOCYTES % (AUTO) 22 % (22-44); MD NO; MEAN CORPUSCULAR HEMOGLOBIN 31.1 pg (27.0-34.8); MEAN CORPUSCULAR HGB CONC 32.9 g/dL (32.4-35.8); MEAN CORPUSCULAR VOLUME 94.6 fL (80-100); MEAN PLATELET VOLUME 7.9 fL (7.4-10.4); MONOCYTES # (AUTO) 0.65 x10^3/uL (0.2-0.8); MONOCYTES % (AUTO) 6 % (2-9); NEUTROPHILS # (AUTO) 7.57 x10^3/uL (1.8-6.8); NEUTROPHILS % (AUTO) 67 % (42-75); PLATELET COUNT 423 x10^3/uL (130-400); RED CELL DISTRIBUTION WIDTH 14.8 % (9.6-15.2)
[2019-08-21 20:03] LABS: ALBUMIN 3.3 g/dL (3.4-5.0); ANION GAP 4 mmol/L (5-15); CALCIUM 8.7 mg/dL (8.5-10.1); CHLORIDE 110 mmol/L (98-107)
[2019-08-21 20:06] LABS: ALANINE AMINOTRANSFERASE 30 U/L (12-78); ALKALINE PHOSPHATASE 170 U/L (45-117); BILIRUBIN,TOTAL 0.3 mg/dL (0.2-1.0); CREATININE 1.58 mg/dL (0.55-1.02); TROPONIN I < 0.015 ng/mL (0.000-0.045)
[2019-08-21 20:15] LABS: INTERNATIONAL NORMALIZED RATIO 0.94 (0.93-1.1)
[2019-08-21 20:52] VITALS: BP 137/89
--- NOTE | 2019-08-21 20:57 | NUR ---
PT UP AND AMBULATED TO BATHROOM
--- NOTE | 2019-08-21 21:16 | NUR ---
REPORT RECEIVED FROM KWASI DUMONT. PLAN OF CARE DISCUSSED. ALL RESULTS BACK AT THIS TIME, PATIENT UP FOR RECHECK
--- NOTE | 2019-08-21 22:06 | NUR ---
Patient given discharge instructions and they have confirmed that they understand the instructions. Patient ambulatory with steady gait.
== END 2019-08-21 22:08 | disposition home or self-care (01) ==
LOC: ED 19:38
DX: R07.89 Other chest pain (principal); R06.02 Shortness of breath; R05 Cough; R11.0 Nausea; I11.0 Hypertensive heart disease with heart failure; I50.9 Heart failure, unspecified; I25.2 Old myocardial infarction; F17.200 Nicotine dependence, unspecified, uncomplicated; Z90.710 Acquired absence of both cervix and uterus
CPT/HCPCS: 36415; 71045; 80053; 83690; 83880; 84484; 85025; 85610; 85730; 93005; 99285

== ENCOUNTER 2020-04-18 13:51 | Emergency (ER) | payer MEDICAID ==
[~2020-04-18] VITALS: Ht 152.4 cm; Wt 120.8 kg
[~2020-04-18 13:51] MED LIST changes: -CLIN300C8 PO; +CLIN300C9 PO
[2020-04-18 14:01] VITALS: BP 162/100
--- NOTE | 2020-04-18 14:26 | NUR ---
PT CAME IN CO LEFT SIDED CHEST/RIB PAIN AFTER FALLING LAST NIGHT ONTO THE PAVEMENT. PT DENIES HITTIN HEAD. "I THINK I BROKE A RIB". PT S[place]ING [place] IN [place] STATING IT HURTS TO LAY DOWN.
--- NOTE | 2020-04-18 14:59 | NUR ---
PT IN IMAGING
[2020-04-18] MEDS ORDERED: ACETAMINOPHEN 500 MG TABLET PO ONE (15:30)
[2020-04-18] MEDS ORDERED: KETOROLAC 30 MG/1 ML IM ONE (15:30)
[2020-04-18] MEDS ORDERED: ACETAMINOPHEN 500 MG TABLET ONE (15:52)
[2020-04-18] MEDS ORDERED: KETOROLAC 30 MG/1 ML ONE (15:52)
--- NOTE | 2020-04-18 15:58 | NUR ---
PT ANGRY AND STATES SHE WANTS TO LEAVE, SHE REFUSES TO PROVIDE UA. PT HAS STEADY GAIT
== END 2020-04-18 16:17 | disposition home or self-care (01) ==
LOC: ED 14:00
DX: S20.212A Contusion of left front wall of thorax, initial encounter (principal); R07.89 Other chest pain; I11.0 Hypertensive heart disease with heart failure; I50.9 Heart failure, unspecified; E66.01 Morbid (severe) obesity due to excess calories; I25.2 Old myocardial infarction; Z88.0 Allergy status to penicillin; Z88.9 Allergy status to unspecified drugs, medicaments and biological substances; Z68.43 Body mass index [BMI] 50.0-59.9, adult; Z90.710 Acquired absence of both cervix and uterus; Z79.899 Other long term (current) drug therapy; X58.XXXA Exposure to other specified factors, initial encounter; Y93.89 Activity, other specified; Y92.89 Other specified places as the place of occurrence of the external cause; Y99.8 Other external cause status
CPT/HCPCS: 99283